=== PATIENT | female | born 1935 | race Two or more races ===

== ENCOUNTER 2020-03-24 08:45 | Outpatient (CLI) | payer MEDICARE, OTHER | END 2020-03-24 23:59 | disposition home or self-care (01) | LOC: WOU 08:45 | PROVIDERS: ATTEND Podiatrist Foot & Ankle Surgery | DX: M72.2 Plantar fascial fibromatosis (principal); M77.32 Calcaneal spur, left foot; M79.672 Pain in left foot; I10 Essential (primary) hypertension; E78.5 Hyperlipidemia, unspecified | CPT/HCPCS: G0463 ==